=== PATIENT | male | born 1960 | race Caucasian/White ===

== ENCOUNTER 2021-08-06 22:51 | Emergency (ER) | payer OTHER, SELFPAY ==
[2021-08-06 22:54] VITALS: BP 175/101; PULSE 78; RESP 18; TEMP 36.7; O2SAT 100
[2021-08-06] MEDS: TETANUS,DIPHTHERIA,AC PERTUSSIS ADULT (0.5 ML) BOOSTRIX IM (23:22)
--- NOTE | 2021-08-06 23:46 | ED.WOUNDLAC ---
HPI - Wound/Laceration General Chief Complaint: Wound/Laceration Stated Complaint: right ring finger lac Time Seen by Provider: 08/06/21 23:01 Source: patient and RN notes reviewed Mode of arrival: ambulatory Limitations: no limitations History of Present Illness HPI narrative: This is 61 year old male who presents for evaluation right 4th finger laceration. Patient states he was cleaning a knife when he accidentally cut tip of his finger. He was unable to get bleeding to stop so he came to ER. He only has minimal pain. He denies numbness or tingling. He states his last tetanus was many years ago . Related Data Allergies Allergy/AdvReac Type Severity Reaction Status Date / Time morphine Allergy Unknown SHOCK Verified 08/06/21 23:05 shellfish derived Allergy Unknown SWELLING Verified 08/06/21 23:05 IN THROAT Review of Systems Review of Systems: All systems reviewed & are unremarkable except as noted in HPI and below PMFSH Past Medical History Medical History (Updated 08/07/21 @ 00:01 by Jaylin Comer) Hypertension Surgical History Surgical History (Updated 08/06/21 @ 23:47 by Jenna Arroyo MD) H/O inguinal hernia repair Social History Social History (Updated 08/06/21 @ 23:47 by Jenna Arroyo MD) Smoking status: Never smoker Exam Const: General: no acute distress and alert Orientation/consciousness: patient oriented x3 Eyes: EOM: EOMs intact bilaterally Resp: Effort & Inspection: normal respiratory effort Skin: Other: see MSK Neuro: General: patient oriented x3 and moves all extremities Extrem: Other: right hand with laceration on finger pad of 4th finger. well approximated 1 cm flap, no bleeding. FRM of finger Psych: Mental Status: mental status grossly normal Affect: normal affect Course Reevaluation(s) Reevaluation #1: I held pressure to patient's finger as it started to rebleed. I left to get him set up for suture and it stopped bleeding. He wanted to try dermabond again. Dermabond applied and bleeding has not restarted. Date: 08/06/21 Time: 23:50 Vital Signs Vital signs: Vital Signs Temperature 98.0 F 08/06/21 22:54 Pulse Rate 78 08/06/21 22:54 Respiratory Rate 18 08/06/21 22:54 Blood Pressure 175/101 H 08/06/21 22:54 Pulse Oximetry 100 08/06/21 22:54 Temperature 98.0 F 08/06/21 22:54 Pulse Rate 77 08/07/21 00:08 Respiratory Rate 16 08/07/21 00:08 Blood Pressure 156/74 H 08/07/21 00:08 Pulse Oximetry 99 08/07/21 00:08 Procedures Laceration Laceration 1: Date: 08/06/21 Time: 23:51 Site: hand (right 4th finger) Side (If applicable): right Size (cm): 1 Description: flap Depth: simple, single layer Pre-repair: irrigated ====== Skin Level ====== Skin layer closed with: dermabond ====== Subcutaneous Layer ====== ====== Muscle Layer ====== ====== Tendon Layer ====== Discharge Plan Discharge Clinical Impression: Laceration of finger of right hand Patient Disposition: Home, Self-Care Condition: Stable Instructions: Antibiotic Form, Laceration (ED), Skin Adhesive Care (ED) Additional Instructions: Please read discharge instructions on skin adhesives. If wound starts to bleed again apply pressure and bandage and bleeding will stop. Keep bandage on for 24 hours if possible. Follow-up/Referrals: Buck,Harjit Mendez MD [Primary Care Provider] -
[2021-08-07 00:08] VITALS: BP 156/74; PULSE 77; RESP 16; O2SAT 99
== END 2021-08-07 00:09 | disposition home or self-care (01) ==
LOC: ANHED 08-07 00:01
PROVIDERS: Emergency Provider General Practice; PCP Family Medicine
DX: S61.214A Laceration without foreign body of right ring finger without damage to nail, initial encounter (principal); Z23 Encounter for immunization; I10 Essential (primary) hypertension; W26.0XXA Contact with knife, initial encounter
CPT/HCPCS: 12001; 90471; 90715; 99282